=== PATIENT | male | born 1935 | race Caucasian/White ===

== ENCOUNTER 2023-08-09 11:46 | Emergency (ER) | payer MEDICARE, SELFPAY ==
[2023-08-09 11:48] VITALS: BP 102/60; PULSE 87; RESP 18; TEMP 36.6; O2SAT 92
--- NOTE | 2023-08-09 12:21 | ED.WOUNDLAC ---
HPI - Wound/Laceration General Chief Complaint: Wound/Laceration Stated Complaint: wound on foot Time Seen by Provider: 08/09/23 12:01 History of Present Illness HPI narrative: patient is an 87-year-old male with a history of diabetes, AFib on Eliquis, hypertension presenting with a foot wound. Patient's family is at bedside and helps with the history. States that he has a chronic wound on the bottom of his left foot. He often bumps his feet on things when he is walking and he recently developed a hematoma on the lateral aspect of the left foot. Over the last couple of days he has developed redness on the dorsal aspect of this foot. He denies any pain but states he does have chronic neuropathy. Denies fevers or chills, nausea or vomiting, or other systemic symptoms. No complaints currently. Related Data Allergies Allergy/AdvReac Type Severity Reaction Status Date / Time No Known Allergies Allergy Unknown Unverified 01/07/15 11:52 Review of Systems Review of Systems: All systems reviewed & are unremarkable except as noted in HPI and below Exam Narrative: GENERAL: Well-appearing, well-nourished, and in no acute distress. HEAD: Normocephalic, atraumatic. EYES: PERRLA and EOMI. ENT: Mucous membranes moist. NECK: Supple. CHEST: Clear to auscultation. No respiratory distress. HEART: Regular rate and rhythm. Normal peripheral pulses. EXTREMITIES: Normal range of motion. No edema. SKIN: Warm, dry, 3x3cm hematoma lateral to fifth toe on left foot, warm erythema on dorsum of left foot w/o tenderness; no fluctuance, no drainage, no crepitus NEURO: No focal deficits. Alert and oriented x3. PSYCH: Normal mood and affect. Course Vital Signs Vital signs: Vital Signs Temperature 97.9 F 08/09/23 11:48 Pulse Rate 87 08/09/23 11:48 Respiratory Rate 18 08/09/23 11:48 Blood Pressure 102/60 08/09/23 11:48 Pulse Oximetry 92 08/09/23 11:48 Oxygen Delivery Room Air 08/09/23 11:48 Temperature 97.6 F 08/09/23 15:45 Pulse Rate 81 08/09/23 15:45 Respiratory Rate 18 08/09/23 15:45 Blood Pressure 111/60 08/09/23 15:45 Pulse Oximetry 98 08/09/23 15:45 Oxygen Delivery Room Air 08/09/23 11:48 Procedures Abscess I/D foot: Date of Incision: 08/09/23 Time of Incision: 15:13 Side (if applicable): left Technique: incised with #11 blade Amount of fluid expressed (mL): 8 Irrigation: Yes Packing used?: none Abcess I&D Additional Comments: large hematoma on left foot was drained with about 8-10 cc of foul-smelling serosanguineous liquid MDM - Wound/Laceration MDM Narrative Medical decision making narrative: 87-year-old male presenting with cellulitis of the left foot. Vitals are stable. Exam remarkable for the above. He does have a hematoma on this foot as well as Who appears to be cellulitis. He is well appearing, he denies any systemic complaints. Will check labs and give some fluids and IV antibiotics. no leukocytosis on lab work. Looks a bit dry and his lactic acid was minimally elevated. Fluids are ongoing. He received a dose of IV Rocephin and doxycycline. Inflammatory markers are elevated as expected. On re-evaluation, the patient continues to deny any complaints. Discussed the workup and offered admission for IV antibiotics but he declines as he prefers outpatient management which I think is reasonable as he overall looks well and his vital signs are stable. Will send in for Keflex and doxy. I did drain the large hematoma on the left foot, please see procedure note below for further detail. Advised close PCP follow-up. Strict return precautions given. Patient and his family are agreeable with this plan. Discharged in stable condition. Differential Diagnosis Differential diagnosis: Likely other ( Cellulitis, hematoma, ulcer) Medical Records Attestation: I reviewed the patient's medical records. Lab Data Attestation: I
[2023-08-09] MEDS: SODIUM CHLORIDE 0.9% IV 1,000 ML 999 ML IV CONT (12:32)
[2023-08-09 12:34] LABS: Basophils Percent Auto 0.3 % (0.2-1.2); Eosinophils Percent Auto 0.5 % (0-4.4); Hematocrit 33.1 % (42.0-52.0); Hemoglobin 10.6 g/dL (14.0-18.0); Immature Granulocyte Absolute 0.05 K/mm3 (0.00-0.031); Immature Granulocyte Percent A 0.7 % (0-0.5); Immature Platelet Fraction Pct 5.4 % (0.9-11.2); Lymphocytes Absolute Auto 0.72 K/mm3 (0.9-3.2); Lymphocytes Percent Auto 9.4 % (18.3-44.2); Mean Corpuscular Hemoglobin 31.8 pg (26-34); Mean Corpuscular Volume 99.4 fl (80-100); Mean Platelet Volume 10.5 fl (7.4-10.4); Monocytes Absolute Auto 0.8 K/mm3 (0.1-0.6); Monocytes Percent Auto 9.9 % (2.6-8.5); Neutrophils Absolute Auto 6.1 K/mm3 (1.3-6.7); Neutrophils Percent Auto 79.2 % (45.5-73.1); Platelet Count Result 147 k/mm3 (150-375); Red Blood Count 3.33 M/mm3 (4.6-6.20); Red Cell Distribution Width 15.4 % (11.5-14.5); White Blood Count 7.6 K/mm3 (4.5-10.0)
[2023-08-09] MEDS: cefTRIAXone 2 GM/NS 100 ML 2 GM/100 ML BAG IVPB (12:34)
[2023-08-09 12:45] LABS: Lactic Acid Reflex 2.4 mmol/L (0.7-2.0)
[2023-08-09 12:55] LABS: Anion Gap 8 mmol/L (8-16); Blood Urea Nitrogen 23 mg/dL (9-20); Calcium 9.2 mg/dL (8.4-10.2); Carbon Dioxide 26 mmol/L (22-30); Chloride 106 mmol/L (98-107); Estimated CRCL calculation 33 ml/min; Estimated Glomerular Filt Rate 44; Glucose 217 mg/dL (65-110); Potassium 3.4 mmol/L (3.4-5.0); Sodium 140 mmol/L (137-145)
[2023-08-09 13:09] LABS: CRP 14.1 mg/dL (<1.0)
[2023-08-09 13:39] LABS: Erythrocyte Sedimentation Rate > 140 mm/hr (0-20)
[2023-08-09] MEDS: DOXYCYCLINE 100 MG/NS 100 ML 100 MG/100 ML BAG IVPB (13:48)
[2023-08-09 13:51] VITALS: BP 121/58; PULSE 80; RESP 18; O2SAT 99
[2023-08-09 15:30] LABS: Reflex Lactic Acid Yes or No Add Lactic
[2023-08-09 15:45] VITALS: BP 111/60; PULSE 81; RESP 18; TEMP 36.4; O2SAT 98
== END 2023-08-09 15:30 | disposition home or self-care (01) ==
PROVIDERS: Emergency Provider Emergency Medicine
DX: L03.116 Cellulitis of left lower limb (principal); S90.32XA Contusion of left foot, initial encounter; I48.91 Unspecified atrial fibrillation; I10 Essential (primary) hypertension; E11.40 Type 2 diabetes mellitus with diabetic neuropathy, unspecified; Z79.01 Long term (current) use of anticoagulants; W22.8XXA Striking against or struck by other objects, initial encounter
CPT/HCPCS: 10060; 10140; 36415; 80048; 83605; 85025; 85055; 85652; 86140; 96365; 96367; 99284; J0696; J7030

== ENCOUNTER 2024-01-07 12:24 | Emergency (ER) | payer MEDICARE, SELFPAY ==
--- NOTE | ~2024-01-07 | XR_ITS ---
XR chest 1V portable Ordering provider: Hema Barber MD History: 88 years Male with . Chest pain WITH N/V X 4 DAYS . Comparison: None. FINDINGS: MEDIASTINUM: The cardiac silhouette is not enlarged. Postoperative changes in the mediastinum. right bipolar pacemaker. LUNGS: No effusions or pneumothorax. Opacification in the left lung base is seen suggestive of atelec tasis versus pneumonia. Prominent markings in the right lung base. OTHER: No free air under the diaphragm. Osteoarthritic changes of both shoulders. Degenerative change s of the spine. IMPRESSION: Left basal atelectasis versus pneumonia. Reviewed, dictated and finalized at location A.
--- NOTE | ~2024-01-07 | XR_ITS ---
EXAMINATION: XR esophogram water soluble DATE: 01/07/2024 18:25 INDICATION: Assess for food impaction TECHNIQUE: The patient drank water-soluble contrast. Fluoroscopic spot radiographs of the hypopharynx and esophagus were obtained. Fluoroscopy exposure time was 0.8 minutes. A total of 262 fluoroscopic images were recorded. Total DAP was 2.973 Gycm^2 COMPARISON: None. FINDINGS: There is complete obstruction at the level of the gastroesophageal junction with contrast d elineating a 2.8 cm mass at the esophageal bulb. No contrast had extend beyond the mass technique: A half minutes following the initial swallow. This point the patient began to vomit and the study was t erminated. IMPRESSION: 1. Complete obstruction at the level of the gastroesophageal junction with 2.8 cm mass at the esophag eal bulb. Differential would include impacted food bolus and malignancy. Recommend endoscopy for furt her evaluation. Reviewed, dictated and finalized at location A. IMPRESSION: 1. Complete obstruction at the level of the gastroesophageal junction with 2.8 cm mass at the esophageal bulb. Differential would include impacted food bolus and malignancy. Recommend endoscopy for further evaluation.
[2024-01-07 12:26] VITALS: BP 107/69; PULSE 90; RESP 18; TEMP 36.4; O2SAT 99
[2024-01-07 12:44] LABS: Basophils Percent Auto 0.3 % (0.2-1.2); Eosinophils Absolute Auto 0.1 K/mm3 (0-0.3); Eosinophils Percent Auto 0.8 % (0-4.4); Hematocrit 44.5 % (42.0-52.0); Hemoglobin 14.8 g/dL (14.0-18.0); Immature Granulocyte Absolute 0.05 K/mm3 (0.00-0.031); Immature Granulocyte Percent A 0.4 % (0-0.5); Lymphocytes Absolute Auto 1.09 K/mm3 (0.9-3.2); Lymphocytes Percent Auto 9.4 % (18.3-44.2); Mean Corpuscular HGB Conc 33.3 g/dl (32-36); Mean Corpuscular Hemoglobin 33.6 pg (26-34); Mean Corpuscular Volume 100.9 fl (80-100); Mean Platelet Volume 10.2 fl (7.4-10.4); Monocytes Absolute Auto 0.9 K/mm3 (0.1-0.6); Monocytes Percent Auto 7.9 % (2.6-8.5); Neutrophils Absolute Auto 9.5 K/mm3 (1.3-6.7); Neutrophils Percent Auto 81.2 % (45.5-73.1); Platelet Count Result 218 k/mm3 (150-375); Red Blood Count 4.41 M/mm3 (4.6-6.20); Red Cell Distribution Width 14.6 % (11.5-14.5); White Blood Count 11.7 K/mm3 (4.5-10.0)
[2024-01-07 12:57] LABS: Alanine Aminotransferase 17 U/L (6-50); Alkaline Phosphatase 138 U/L (38-126); Anion Gap 17 mmol/L (4-12); Aspartate Amino Transferase 25 U/L (17-59); Bilirubin,Total 1.1 mg/dL (0.2-1.3); Blood Urea Nitrogen 47 mg/dL (9-20); Calcium 9.9 mg/dL (8.4-10.2); Carbon Dioxide 23 mmol/L (22-30); Chloride 112 mmol/L (98-107); Estimated Glomerular Filt Rate 27; Glucose 207 mg/dL (65-110); Lipase 60 U/L (23-300); Potassium 3.9 mmol/L (3.4-5.0); Sodium 152 mmol/L (137-145)
[2024-01-07 16:01] LABS: Add Urine Microscopic? YES; Appearance Urine Turbid (Clear); Bacteria Urine 4+ /hpf; Bilirubin Urine Negative (Negative); Blood Urine 2+ (Negative); Color Urine Yellow (Yellow); Glucose Urine UA Negative (Negative); Ketones Urine 1+ mg/dL (Negative); Leukocyte Esterase Ur 3+ LEU/UL (Negative); Need Manual Microscopic Reviewed; Nitrate Urine Negative (Negative); Protein Urine 3+ mg/dL (Negative); RBC Urine 0-2 /hpf (0-2); Specific Grav Ur 1.015 (1.001-1.035); Squamous Epithelial Cell Urine Occasional /hpf (Few); WBC Urine >100 /hpf (0-3); pH Urine 5.5 (5.0-9.0)
--- NOTE | 2024-01-07 16:21 | ECG_ITS ---
Test Date: 2024-01-07 16:36:08 Measurements Intervals [place] Rate: 88 P: 0 NH: 0 QRS: 174 QRSD: 158 T: -20 QT: 419 QTc: 509 Interpretive Statements ATRIAL FIBRILLATION VENTRICULAR PREMATURE COMPLEX RIGHT AXIS DEVIATION RIGHT BUNDLE BRANCH BLOCK INFERIOR INFARCT, AGE INDETERMINATE BASELINE ARTIFACT- I, II, III, AVR, AVL, AVF ABNORMAL ECG No previous ECG available for comparison Electronically Signed On 01-07-2024 20:22:32 CDT by Jr Guan D.O.
--- NOTE | 2024-01-07 16:23 | ED.GENADULT ---
HPI - General Adult General Chief complaint: Nausea/Vomiting/Diarrhea Stated complaint: n/v x 4 days Time Seen by Provider: 01/07/24 15:34 History of Present Illness HPI narrative: Patient has dimensions a poor historian. History obtained from patient and his daughter was at bedside This is an 88-year-old male presenting with nausea and vomiting x4 days. Patient had a choking event 4 days ago. Since then he has been unable to tolerate any food or liquids. Patient has no history of food impaction although his daughter notes that their family has significant swallowing issues although she cannot provide me with an actual diagnosis. He has an achy pain in the center of his chest. He denies fevers chills shortness of breath abdominal pain or urinary symptoms. No sick contacts at home. Related Data Allergies Allergy/AdvReac Type Severity Reaction Status Date / Time No Known Allergies Allergy Unknown Unverified 01/07/24 12:24 Exam Narrative: APPEARANCE: No apparent distress. A&O times 1-2 Head: atraumatic. EYES: EOMI, NOSE: Atraumatic NECK: Trachea midline RESPIRATORY: No increased rate of breathing clear to auscultation CARDIOVASCULAR: RRR, no peripheral edema ABDOMINAL: Non-distended soft nontender MUSCULOSKELETAl: No obvious deformities NEURO: Alert. Moving 4/4 extremities SKIN:: Warm, dry. Normal color PSYCHIATRIC: Normal affect Course Vital Signs Vital signs: Vital Signs Temperature 97.6 F 01/07/24 12:26 Pulse Rate 90 01/07/24 12:26 Respiratory Rate 18 01/07/24 12:26 Blood Pressure 107/69 01/07/24 12:26 Pulse Oximetry 99 01/07/24 12:26 Oxygen Delivery Room Air 01/07/24 12:26 Temperature 97.6 F 01/07/24 12:26 Pulse Rate 90 01/07/24 12:26 Respiratory Rate 18 01/07/24 12:26 Blood Pressure 107/69 01/07/24 12:26 Pulse Oximetry 99 01/07/24 12:26 Oxygen Delivery Room Air 01/07/24 12:26 Medical Decision Making MDM Narrative Medical decision making narrative: -Course: 88-year-old male presenting with 4 days of nausea and vomiting after choking on a piece of meat. Patient is vomiting up anything he drinks almost immediately with no stomach content. This is concerning for a food impaction. We do not have GI for patient will be transferred. Rest the patient's workup was significant for severe dehydration(hypernatremia) with acute kidney injury and urinary tract infection. Patient is given fluid resuscitation as well as antibiotics. -DDX includes but is not limited to: Food impaction, [place] diverticulum item, esophageal dysmotility syndrome, viral syndrome, gastroenteritis, sepsis, UTI, pneumonia, aspiration -Co-morbidities complicating care: Coronary artery disease with CABG, hypertension, diabetes, dementia -Social determinants of health: Lives with his daughter have advised drugs or alcohol -Independent interpretation of studies: White count 11.7. Sodium 152, chloride 112, BUN 47 creatinine 2.3 from baseline of about 1.1. Lactic 1.4 Urine indicative infection and dehydration. Chest x-ray showed left basilar atelectasis versus pneumonia. Patient has no respiratory complaints. Independent EKG interpretation: Rhythm Afib, Rate [88], [place] -[normal], NH -None, QRS [wide], QTC [normal], T waves -[negative for concerning inversions], ST Segments - [Negative for concerning elevations] Final interpretations: Afib -Discussion of Management/Consultants: Dr. Garcia - GI - [facility] Accepted for admission under Dr. Jackson -Interventions: 1 L normal saline, Zofran, Pepcid, ceftriaxone -Shared decision making / Disposition: Transfer Vital Signs Vital Signs: Vital Signs Temperature 97.6 F 01/07/24 12:26 Pulse Rate 90 01/07/24 12:26 Respiratory Rate 18 01/07/24 12:26 Blood Pressure 107/69 01/07/24 12:26 Pulse Oximetry 99 01/07/24 12:26 Oxygen Delivery Room Air 01/07/24 12:26 Temperature 97.6 F 01/07/24 12:26 Pulse Rate 90
[2024-01-07 17:14] LABS: Troponin I 0.027 ng/mL (0.000-0.034)
[2024-01-07 17:18] LABS: Lactic Acid Reflex 1.4 mmol/L (0.7-2.0)
[2024-01-07] MEDS: SODIUM CHLORIDE 0.9% IV 1,000 ML 999 ML IV CONT ×2 (17:23→18:59)
[2024-01-07] MEDS: ONDANSETRON INJ 4 MG/2 ML VIAL IV PUSH (17:24)
[2024-01-07] MEDS: FAMOTIDINE 20 MG/2 ML VIAL IV PUSH (17:24)
--- NOTE | 2024-01-07 17:42 | ECG_ITS ---
Test Date: 2024-01-07 17:47:44 Measurements Intervals [place] Rate: 80 P: 0 [place]: 0 QRS: 220 QRSD: 158 T: 10 QT: 447 QTc: 517 Interpretive Statements ATRIAL FIBRILLATION ELECTRONIC VENTRICULAR PACEMAKER COMPLEXES RIGHT BUNDLE BRANCH BLOCK BASELINE ARTIFACT- I, III, AVR, AVL, AVF, V4-V6 ABNORMAL ECG Compared to ECG 01/07/2024 16:36:08 NO SIGNIFICANT CHANGE Electronically Signed On 01-07-2024 20:24:02 CDT by Jr Guan D.O.
[2024-01-07 17:50] LABS: Troponin I 0.027 ng/mL (0.000-0.034)
[2024-01-07 18:40] VITALS: BP 117/80; PULSE 78; RESP 15; O2SAT 99
== END 2024-01-07 21:07 | disposition short-term general hospital (02) ==
PROVIDERS: Physician Assistant; Emergency Provider Emergency Medicine; PCP Nurse Practitioner
DX: K22.89 Other specified disease of esophagus (principal); N39.0 Urinary tract infection, site not specified; E86.0 Dehydration; F03.90 Unspecified dementia, unspecified severity, without behavioral disturbance, psychotic disturbance, mood disturbance, and anxiety; I25.10 Atherosclerotic heart disease of native coronary artery without angina pectoris; I10 Essential (primary) hypertension; E11.9 Type 2 diabetes mellitus without complications; Z95.1 Presence of aortocoronary bypass graft; I48.91 Unspecified atrial fibrillation; I49.3 Ventricular premature depolarization; R94.31 Abnormal electrocardiogram [ECG] [EKG]; I45.10 Unspecified right bundle-branch block
CPT/HCPCS: 36415; 71045; 74220; 80053; 81001; 83605; 83690; 84484; 85025; 87040; 87086; 87088; 93005; 96361; 96365; 96375; 99284; 99285; J0696; J2405; J7030